=== PATIENT | female | born 1975 | race Caucasian/White ===

== ENCOUNTER 2018-01-12 22:06 | Emergency (ER) | payer BC, MEDICAID ==
[2018-01-12] MEDS ORDERED: Ondansetron 4 MG/2 ML SDV IVPUSH ONE (22:43)
[2018-01-12] MEDS ORDERED: Sodium Chloride 0.9% 1,000 ML IV ONE (22:43)
[2018-01-12] MEDS ORDERED: Sodium Chloride 0.9% 10 ML Syringe FLUSH PRN (22:43)
[2018-01-12] MEDS ORDERED: Ketorolac 30 MG/ML SDV IVPUSH ONE (23:11)
--- NOTE | 2018-01-12 23:19 | EDM.PDOC ---
ED HPI GENERAL MEDICAL PROBLEM - General Chief Complaint: Gastrointestinal Problem Stated Complaint: VOMITING Time Seen by Provider: 01/12/18 22:42 Source of Information: Reports: Patient History Limitations: Reports: No Limitations - History of Present Illness INITIAL COMMENTS - FREE TEXT/NARRATIVE: 42 y/o F with hx extensive abdominal surgeries for ?perforated bowel? (poor historian) and abdominal wound infection requiring wound vac several years ago, also possible bladder injury s/p repair, and prior narcotic abuse now clean x years, presents with pain. States pain is primarily in abdomen but she hurts so much all over that it's hard to say exactly where it's coming from. Pain is sharp, diffuse, worse with movement, no relieving factors. It started today. No provoking factors. Also had vomiting prior to arrival which seemed to make the pain worse. She states pain is currently severe. She didn't take anything for pain prior to coming to the ED. No fever. No cough/CP/SOB. She does have some dysuria. No hematuria. Lower Abdominal Pain Score (Numeric/FACES): 8 - Related Data Allergies Allergy/AdvReac Type Severity Reaction Status Date / Time Penicillins Allergy Rash Verified 01/12/18 22:18 Home Meds: Home Meds Dicyclomine [Bentyl] 20 mg PO QIDACANDBED PRN #20 tab 01/13/18 [Rx] Ondansetron [Zofran ODT] 4 mg PO Q6H PRN #12 tab.dis 01/13/18 [Rx] Past Medical History Other OB/BYN History: "Placenta went through her uterus and bladder" Musculoskeletal History: Reports: Fracture Psychiatric History: Reports: Depression Other Dermatologic History: Flesh eating staph infection - Past Surgical History GI Surgical History: Reports: Appendectomy Other GI Surgeries/Procedures: Part of colon removed Female Surgical History: Reports: Section Other Musculoskeletal Surgeries/Procedures:: Foot surgery Social & Family History - Family History Family Medical History: Noncontributory - Tobacco Use Smoking Status *Q: Current Every Day Smoker Years of Tobacco use: 25 Packs/Tins Daily: 1.5 - Recreational Drug Use Recreational Drug Use: No ED ROS GENERAL - Review of Systems Review Of Systems: See Below Constitutional: Denies: Fever HEENT: Reports: No Symptoms Respiratory: Reports: Cough Cardiovascular: Denies: Chest Pain GI/Abdominal: Reports: Abdominal Pain, Vomiting : Reports: Dysuria Musculoskeletal: Reports: No Symptoms Skin: Reports: No Symptoms Neurological: Reports: No Symptoms Psychiatric: Reports: No Symptoms Hematologic/Lymphatic: Reports: No Symptoms ED EXAM, GI/ABD - Physical Exam Exam: See Below Exam Limited By: No Limitations General Appearance: Alert, WD/WN, Anxious, Moderate Distress Eyes: Bilateral: Normal Appearance Ears: Normal External Exam Nose: Normal Inspection Throat/Mouth: Normal Inspection, Normal Oropharynx, Normal Voice, No Airway Compromise Head: Atraumatic, Normocephalic Neck: Normal Inspection Respiratory/Chest: No Respiratory Distress, Lungs Clear, Normal Breath Sounds Cardiovascular: Normal Peripheral Pulses, Regular Rate, Rhythm, No Murmur GI/Abdominal Exam: Soft, Other (diffuse TTP, no rebound/guarding ) Back Exam: Normal Inspection. No: CVA Tenderness (L), CVA Tenderness (R) Extremities: Normal Inspection Neurological: Alert, Oriented, Normal Cognition, No Motor/Sensory Deficits Psychiatric: Anxious, Tearful Skin Exam: Warm, Dry, Intact, Normal Color, No Rash Course - Vital Signs Last Recorded V/S: Last Vital Signs Temp 37.1 C 01/12/18 22:13 Pulse 97 01/12/18 22:13 Resp 24 H 01/12/18 22:13 BP 126/77 01/12/18 22:13 Pulse Ox 98 01/12/18 22:13 - Orders/Labs/Meds Orders: Active Orders 24 hr Category Date Time Status Peripheral IV Care [RC] . DIRECTED Care 01/12/18 22:43 Active Peripheral IV Care [RC] . DIRECTED Care 01/12/18 22:43 Active Abdomen Pelvis w Cont [CT] Stat Exams 01/12/18 23:23 Taken CULTURE URINE [RM] Stat Lab 01/13/18 01:14 Ordered UA W/MICROSCOPIC [URIN] Stat Lab 01/13/18 01:22 Ordered Peripheral IV Insertion Adult [OM.PC] Routine Oth 01/12/18 22:43 Ordered Labs: Laboratory Tests 01/12/18 01/12/18 01/12/18 Range/Units 22:58 22:58 22:58 WBC 9.63 (3.98-10.04) K/mm3 RBC 4.69 (3.98-5.22) M/mm3 Hgb 14.8 (11.2-15.7) gm/L Hct 44.6 (34.1-44.9) % MCV 95.1 H (79.4-94.8) fl MCH 31.6 (25.6-32.2) pg MCHC 33.2 (32.2-35.5) g/dl RDW Std Deviation 55.1 H (36.4-46.3) fL Plt Count 332 (182-369) K/mm3 MPV 10.1 (9.4-12.3) fl Neut % (Auto) 63.6 (34.0-71.1) % Lymph % (Auto) 27.4 (19.3-51.7) % Bland % (Auto) 6.4 (4.7-12.5) % Eos % (Auto) 1.6 (0.7-5.8) Baso % (Auto) 0.5 (0.1-1.2) % Neut # (Auto) 6.12 (1.56-6.13) K/mm3 Lymph # (Auto) 2.64 (1.18-3.74) K/mm3 Bland # (Auto) 0.62 H (0.24-0.36) K/mm3 Eos # (Auto) 0.15 (0.04-0.36) K/mm3 Baso # (Auto) 0.05 (0.01-0.08) K/mm3 Sodium 136 (136-145) mEq/L Potassium 4.5 (3.5-5.1) mEq/L Chloride 104 (98-107) mEq/L Carbon Dioxide 27 (21-32) mEq/L Anion Gap 9.5 (5-15) BUN 10 (7-18) mg/dL Creatinine 0.7 (0.55-1.02) mg/dL Est Cr Clr Drug Dosing 81.96 mL/min Estimated GFR (MDRD) > 60 (>60) mL/min BUN/Creatinine Ratio 14.3 (14-18) Glucose 103 (74-106) mg/dL Lactic Acid 0.8 (0.4-2.0) mmol/L Calcium 9.2 (8.5-10.1) mg/dL Magnesium 2.1 (1.8-2.4) mg/dl Total Bilirubin 0.3 (0.2-1.0) mg/dL AST 28 (15-37) U/L ALT 24 (14-59) U/L Alkaline Phosphatase 58 (46-116) U/L Total Protein 7.2 (6.4-8.2) g/dl Albumin 3.1 L (3.4-5.0) g/dl Globulin 4.1 gm/dL Albumin/Globulin Ratio 0.8 L (1-2) Lipase 402 H (73-393) U/L Urine Color (Yellow) Urine Appearance (Clear) Urine pH (5.0-8.0) Ur Specific [place] (1.005-1.030) Urine Protein (Negative) Urine Glucose (UA) (Negative) Urine Ketones (Negative) Urine Occult Blood (Negative) Urine Nitrite (Negative) Urine Bilirubin (Negative) Urine Urobilinogen (0.2-1.0) Ur Leukocyte Esterase (Negative) Urine RBC (0-5) /hpf Urine WBC (0-5) /hpf Ur Epithelial Cells (0-5) /hpf Urine Bacteria (FEW) /hpf Urine Mucus (FEW) /hpf 01/13/18 Range/Units 01:22 WBC (3.98-10.04) K/mm3 RBC (3.98-5.22) M/mm3 Hgb (11.2-15.7) gm/L Hct (34.1-44.9) % MCV (79.4-94.8) fl MCH (25.6-32.2) pg MCHC (32.2-35.5) g/dl RDW Std Deviation (36.4-46.3) fL Plt Count (182-369) K/mm3 MPV (9.4-12.3) fl Neut % (Auto) (34.0-71.1) % Lymph % (Auto) (19.3-51.7) % Bland % (Auto) (4.7-12.5) % Eos % (Auto) (0.7-5.8) Baso % (Auto) (0.1-1.2) % Neut # (Auto) (1.56-6.13) K/mm3 Lymph # (Auto) (1.18-3.74) K/mm3 Bland # (Auto) (0.24-0.36) K/mm3 Eos # (Auto) (0.04-0.36) K/mm3 Baso # (Auto) (0.01-0.08) K/mm3 Sodium (136-145) mEq/L Potassium (3.5-5.1) mEq/L Chloride (98-107) mEq/L Carbon Dioxide (21-32) mEq/L Anion Gap (5-15) BUN (7-18) mg/dL Creatinine (0.55-1.02) mg/dL Est Cr Clr Drug Dosing mL/min Estimated GFR (MDRD) (>60) mL/min BUN/Creatinine Ratio (14-18) Glucose (74-106) mg/dL Lactic Acid (0.4-2.0) mmol/L Calcium (8.5-10.1) mg/dL Magnesium (1.8-2.4) mg/dl Total Bilirubin (0.2-1.0) mg/dL AST (15-37) U/L ALT (14-59) U/L Alkaline Phosphatase (46-116) U/L Total Protein (6.4-8.2) g/dl Albumin (3.4-5.0) g/dl Globulin gm/dL Albumin/Globulin Ratio (1-2) Lipase (73-393) U/L Urine Color Light yellow (Yellow) Urine Appearance Slt cloudy H (Clear) Urine pH 7.0 (5.0-8.0) Ur Specific [place] 1.015 (1.005-1.030) Urine Protein Negative (Negative) Urine Glucose (UA) Negative (Negative) Urine Ketones Negative (Negative) Urine Occult Blood Negative (Negative) Urine Nitrite Negative (Negative) Urine Bilirubin Negative (Negative) Urine Urobilinogen 0.2 (0.2-1.0) Ur Leukocyte Esterase Negative (Negative) Urine RBC Not seen (0-5) /hpf Urine WBC 0-5 (0-5) /hpf Ur Epithelial Cells 0-5 (0-5) /hpf Urine Bacteria Rare (FEW) /hpf Urine Mucus Not seen (FEW) /hpf Meds: Medications Discontinued Medications Generic Name Dose Route Start Last Admin Trade Name Freq PRN Reason Stop Dose Admin Diatrizoate Meglum/Diatrizoate Sod 120 ml 01/13/18 01:02 Gastrografin 37% PO 01/13/18 01:03 ONETIME ONE Diatrizoate Meglum/Diatrizoate Sod 90 ml 01/13/18 01:45 01/13/18 01:46 Gastrografin 37% PO 01/13/18 01:46 Not Given ONETIME ONE Dicyclomine HCl 40 mg 01/13/18 02:35 01/13/18 02:50 Bentyl PO 01/13/18 02:36 40 mg ONETIME ONE Administration Fentanyl 50 mcg 01/13/18 01:12 01/13/18 01:47 Sublimaze IVPUSH 01/13/18 01:13 50 mcg ONETIME ONE Administration Sodium Chloride 1,000 mls @ 1,000 mls/hr 01/12/18 22:43 01/12/18 23:04 Normal Saline IV 01/12/18 23:42 1,000 mls/hr ONETIME ONE Administration Sodium Chloride 1,000 mls @ 1,000 mls/hr 01/13/18 00:17 01/13/18 00:23 Normal Saline IV 01/13/18 01:16 1,000 mls/hr ONETIME ONE Administration Iopamidol 125 ml 01/13/18 01:02 01/13/18 01:46 Isovue-300 (61%) IVPUSH 01/13/18 01:03 125 ml ONETIME ONE Administration Iopamidol 125 ml 01/13/18 01:45 Isovue-300 (61%) IVPUSH 01/13/18 01:46 ONETIME ONE Ketorolac Tromethamine 30 mg 01/12/18 23:11 01/12/18 23:29 Toradol IVPUSH 01/12/18 23:12 30 mg ONETIME ONE Administration Lorazepam 1 mg 01/12/18 23:22 01/12/18 23:30 Ativan IVPUSH 01/12/18 23:23 1 mg ONETIME ONE Administration Morphine Sulfate 4 mg 01/13/18 00:01 01/13/18 00:23 Morphine IVPUSH 4 mg Q2H PRN Administration Pain Ondansetron HCl 4 mg 01/12/18 22:43 01/12/18 23:04 Zofran IVPUSH 01/12/18 22:44 4 mg ONETIME ONE Administration Oxycodone HCl 5 mg 01/13/18 02:35 01/13/18 03:52 Oxycodone PO 01/13/18 02:36 Not Given ONETIME ONE Oxycodone/Acetaminophen 1 tab 01/13/18 02:45 01/13/18 02:49 Percocet 325-5 Mg PO 01/13/18 02:46 1 tab ONETIME ONE Administration Pantoprazole Sodium 40 mg 01/13/18 01:31 01/13/18 01:42 Protonix Iv IVPUSH 01/13/18 01:32 40 mg ONETIME ONE Administration Phenazopyridine HCl 95 mg 01/13/18 02:06 01/13/18 02:50 Urinary Pain Relief PO 95 mg TIDPC STEPHANIE Administration Sodium Chloride 10 ml 01/12/18 22:43 01/12/18 23:05 Saline Flush FLUSH 10 ml ASDIRECTED PRN Administration Keep Vein Open - Re-Assessments/Exams Free Text/Narrative Re-Assessment/Exam: 01/13/18 01:34 Labs significant for normal WBC, no left shift, normal HCT, normal electrolytes , normal LFT's, lipase 402. UA pending. Given degree of pain and complicated past surgical history, will proceed with CT a/p. 01/13/18 02:36 Patient was sleeping comfortably when I went to check on her. When awake, she continued to complain of diffuse abdominal pain. No clear explanation for pain. UA negative. CT a/p shows no acute findings. Her labs are benign. Will give dose of bentyl, plan for dc home with PCP f/u tomorrow or [facility]. Departure - Departure Time of Disposition: 02:37 Disposition: Home, Self-Care 01 Clinical Impression: Abdominal pain Qualifiers: Abdominal location: generalized Qualified Code(s): R10.84 - Generalized abdominal pain - Discharge Information Prescriptions: Dicyclomine [Bentyl] 20 mg PO QIDACANDBED PRN #20 tab PRN Reason: Abdominal Pain Ondansetron [Zofran ODT] 4 mg PO Q6H PRN #12 tab.dis PRN Reason: Nausea Instructions: Abdominal Pain, Adult, [id number] Referrals: Denice Ferrari PA-C [Primary Care Provider] - Forms: ED Department Discharge Additional Instructions: 1. Continue your current home medications 2. Take bentyl (dicyclomine) as needed for abdominal cramping. Take ondansetron (zofran) as prescribed for nausea. 3. Follow up with your primary care provider as soon as possible, ideally tomorrow if possible. 4. Clear liquid diet until you're feeling better. Once your pain has subsided and you have an appetite, OK to start advancing your diet. 5. Return to the ED as needed for a recheck if you have severe pain, multiple episodes of vomiting without keeping liquids down and concern for dehydration, difficulty breathing, or other concerning symptoms. - My Orders Last 24 Hours: My Active Orders 01/12/18 22:43 Peripheral IV Care [RC] . DIRECTED Peripheral IV Care [RC] . DIRECTED Peripheral IV Insertion Adult [OM.PC] Routine 01/12/18 23:23 Abdomen Pelvis w Cont [CT] Stat 01/13/18 01:14 CULTURE URINE [RM] Stat 01/13/18 01:22 UA W/MICROSCOPIC [URIN] Stat - Assessment/Plan Last 24 Hours: My Active Orders 01/12/18 22:43 Peripheral IV Care [RC] . DIRECTED Peripheral IV Care [RC] . DIRECTED Peripheral IV Insertion Adult [OM.PC] Routine 01/12/18 23:23 Abdomen Pelvis w Cont [CT] Stat 01/13/18 01:14 CULTURE URINE [RM] Stat 01/13/18 01:22 UA W/MICROSCOPIC [URIN] Stat
[2018-01-12] MEDS ORDERED: LORazepam 2 MG/ML SDV IVPUSH ONE (23:22)
[2018-01-13] MEDS ORDERED: Morphine 4 MG/ML Syringe IVPUSH PRN (00:01)
[2018-01-13] MEDS ORDERED: Sodium Chloride 0.9% 1,000 ML IV ONE (00:17)
[2018-01-13] MEDS ORDERED: Iopamidol 612 MG/ML 150 ML Bottle IVPUSH ONE ×2 (01:02→01:45)
[2018-01-13] MEDS ORDERED: Diatrizoate Meglumine/Diatrizoate Sodium 37% 120 ML Bottle PO ONE ×2 (01:02→01:45)
[2018-01-13] MEDS ORDERED: fentaNYL 100 MCG/2 ML SDV IVPUSH ONE (01:12)
[2018-01-13] MEDS ORDERED: Pantoprazole 40 MG Vial IVPUSH ONE (01:31)
[2018-01-13] MEDS ORDERED: Phenazopyridine 95 MG Tab PO SCH (02:06)
[2018-01-13] MEDS ORDERED: Dicyclomine 10 MG Cap PO ONE (02:35)
[2018-01-13] MEDS ORDERED: oxyCODONE 5 MG Tab PO ONE (02:35)
[2018-01-13] MEDS ORDERED: Acetaminophen/oxyCODONE 325-5 MG Tab PO ONE (02:45)
--- NOTE | 2018-01-13 08:19 | CT ---
CT abdomen and pelvis Technique: Multiple axial sections were obtained from above the dome of the diaphragm inferiorly through the pubic symphysis. Intravenous contrast was utilized. No oral contrast has been given. Delayed images were obtained through the bladder. Comparison: Prior abdominal and pelvic CT exam of 01/11/13. Findings: Incidental bilateral breast prosthesis noted. Bibasilar atelectasis is seen. Liver shows no focal parenchymal abnormality. Spleen appears within normal limits. Adrenal glands show no nodule. Gallbladder contains no calcified gallstones. Kidneys show symmetric contrast enhancement without hydronephrosis or mass. Pancreas is within normal limits. Aorta shows atherosclerotic change which continues into the iliac vessels. No aneurysm is seen. No retroperitoneal adenopathy is noted. No mesenteric abnormalities are seen. Appendix not visualized. No pelvic mass or adenopathy is seen. Delayed images show contrast within the distal ureters and within the bladder. No free fluid or inflammatory change is seen. Bone window settings were reviewed which show a lucent lesion within the right iliac bone measuring about 3.1 cm in size which appears stable from previous CT exam and is therefore benign. Impression: 1. Incidental findings. Nothing acute is appreciated on CT study of the abdomen and pelvis. Diagnostic code #2 I agree with preliminary report issued by [facility] ([facility] preliminary report dictated on 01/13/18, 3:27 AM Central Time)
== END 2018-01-13 02:55 | disposition home or self-care (01) ==
LOC: JD.ED 22:06
DX: R10.84 Generalized abdominal pain (principal); R10.30 Lower abdominal pain, unspecified; F17.210 Nicotine dependence, cigarettes, uncomplicated; F32.9 Major depressive disorder, single episode, unspecified; Z88.0 Allergy status to penicillin; Z79.899 Other long term (current) drug therapy; Z90.49 Acquired absence of other specified parts of digestive tract
CPT/HCPCS: 36415; 74177; 80053; 81001; 83605; 83690; 83735; 85025; 87086; 96361; 96374; 96375; 99284; A9270; C9113; J1885; J2060; J2270; J2405; J3010; J7040; J7050; Q9963; Q9967

== ENCOUNTER 2018-09-23 00:39 | Emergency (ER) | payer MEDICAID ==
[2018-09-23] MEDS ORDERED: Ketorolac 30 MG/ML SDV IM ONE (01:14)
[2018-09-23] MEDS ORDERED: LORazepam 1 MG Tab PO ONE (01:14)
--- NOTE | 2018-09-23 01:57 | EDM.PDOC ---
ED HPI GENERAL MEDICAL PROBLEM - General Chief Complaint: Back Pain or Injury Stated Complaint: FALL/BACK PAIN VOMITING Time Seen by Provider: 09/23/18 01:05 Source of Information: Reports: Patient, RN Notes Reviewed - History of Present Illness INITIAL COMMENTS - FREE TEXT/NARRATIVE: 43-year-old female slipped on the ice last evening about 5 hours ago coming down on her tailbone and low back. She is complaining of very severe low back discomfort as well as tailbone discomfort worse with motion. States she did hit her head but there is no LOC. She does not have significant headache. No major neck discomfort, no chest pain or difficulty breathing. 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: "Placenta went through her uterus and bladder" Musculoskeletal History: Reports: Fracture Psychiatric History: Reports: Anxiety, Depression Other Dermatologic History: Flesh eating staph infection - Past Surgical History GI Surgical History: Reports: Appendectomy Other GI Surgeries/Procedures: Part of colon removed Female Surgical History: Reports: Section Other Musculoskeletal Surgeries/Procedures:: Foot surgery Social & Family History - Family History Family Medical History: Noncontributory - Tobacco Use Smoking Status *Q: Current Every Day Smoker Years of Tobacco use: 25 Packs/Tins Daily: 1 - Caffeine Use Caffeine Use: Reports: Soda - Recreational Drug Use Recreational Drug Use: Yes Drug Use in Last 12 Months: No Recreational Drug Type: Reports: Ativan, Dilaudid, Oxycodone, Other (see below) Other Recreational Drug Type: pt states she used to "pop pills" . ED ROS GENERAL - Review of Systems Review Of Systems: See Below Constitutional: Reports: No Symptoms HEENT: Denies: Ear Discharge Respiratory: Denies: Shortness of Breath Cardiovascular: Denies: Chest Pain GI/Abdominal: Denies: Abdominal Pain Musculoskeletal: Reports: Back Pain. Denies: Neck Pain, Shoulder Pain, Leg Pain (Low back), Joint Pain (No hip or lower extremity pain) Skin: Denies: Bruising Neurological: Reports: Dizziness (Mild), Headache (Minimal) ED EXAM,LOWER BACK PAIN/INJURY - Physical Exam Exam: See Below General Appearance: Alert, Anxious (Hyperventilating on arrival to ED), Moderate Distress Eye Exam: Bilateral Eye: PERRL Ears: Normal External Exam Nose: Normal Inspection Throat/Mouth: Normal Inspection Head: Atraumatic Neck: Supple, Non-Tender Respiratory/Chest: No Respiratory Distress, Lungs Clear, Normal Breath Sounds Cardiovascular: Regular Rate, Rhythm Back Exam: Paraspinal Tenderness, Vertebral Tenderness, Other (Low mid back no bruising or abrasion visible, no swelling) Extremities: Normal Inspection Neurological: Alert, No Motor/Sensory Deficits Skin Exam: Warm, Dry, Normal Color Course - Vital Signs Last Recorded V/S: Last Vital Signs Temp 97.8 F 09/23/18 00:57 Pulse 108 H 09/23/18 00:57 Resp 18 09/23/18 00:57 BP 125/91 H 09/23/18 00:57 Pulse Ox 98 09/23/18 00:57 - Orders/Labs/Meds Orders: Active Orders 24 hr Category Date Time Status Lumbar Spine 2 or 3V [CR] Stat Exams 09/23/18 01:27 Taken Sacrum Coccyx Min 2V [CR] Stat Exams 09/23/18 01:27 Taken Meds: Medications Discontinued Medications Generic Name Dose Route Start Last Admin Trade Name Germanq PRN Reason Stop Dose Admin Acetaminophen 650 mg 09/23/18 02:13 09/23/18 02:27 Tylenol PO 09/23/18 02:14 650 mg NOW ONE Administration Hydrocodone Bitart/Acetaminophen 1 tab 09/23/18 02:12 09/23/18 02:26 [place] 325-5 Mg PO 09/23/18 02:13 1 tab ONETIME ONE Administration Ketorolac Tromethamine 30 mg 09/23/18 01:14 09/23/18 01:22 Toradol IM 09/23/18 01:15 30 mg ONETIME ONE Administration Lorazepam 1 mg 09/23/18 01:14 09/23/18 01:23 Ativan PO 09/23/18 01:15 1 mg ONETIME ONE Administration - Re-Assessments/Exams Free Text/Narrative Re-Assessment/Exam: 09/23/18 02:46 X-rays show no visible fracture Departure - Departure Time of Disposition: 02:20 Disposition: Home, Self-Care 01 Condition: Fair Clinical Impression: Fall Qualifiers: Encounter type: initial encounter Qualified Code(s): W19.XXXA - Unspecified fall, initial encounter Contusion of coccyx Qualifiers: Encounter type: initial encounter Qualified Code(s): S30.0XXA - Contusion of lower back and pelvis, initial encounter Contusion, back Qualifiers: Encounter type: initial encounter Laterality: unspecified laterality Qualified Code(s): S20.229A - Contusion of unspecified back wall of thorax, initial encounter - Discharge Information Instructions: Contusion Referrals: Denice Ferrari PA-C [Primary Care Provider] - Forms: ED Department Discharge Additional Instructions: Alternate ice and heat as needed, you have been given Ativan orally, Toradol IM , Tylenol 650 mg, one half tablet hydrocodone while here in the ED. You may take the other half tablet hydrocodone in about 6 hours along with 500 mg Tylenol if needed at that time. Then continue to alternate Tylenol and ibuprofen or Aleve until discomfort resolving, follow-up clinic if not much better within 3-5 days as expected. - My Orders Last 24 Hours: My Active Orders 09/23/18 01:27 Lumbar Spine 2 or 3V [CR] Stat Sacrum Coccyx Min 2V [CR] Stat - Assessment/Plan Last 24 Hours: My Active Orders 09/23/18 01:27 Lumbar Spine 2 or 3V [CR] Stat Sacrum Coccyx Min 2V [CR] Stat
[2018-09-23] MEDS ORDERED: Acetaminophen/HYDROcodone 325-5 MG Tab PO ONE (02:12)
[2018-09-23] MEDS ORDERED: Acetaminophen 325 MG Tab PO ONE (02:13)
--- NOTE | 2018-09-23 06:40 | CR ---
Lumbar spine: AP, lateral and cone-down lateral view centered to the lumbosacral junction were obtained. Comparison: No prior lumbar spine imaging. Mild disc space narrowing is noted at L5-S1. Other disc spaces are maintained. Mild scattered endplate osteophytes are seen. Minimal scoliosis is noted. Pedicles as well as visualized transverse and spinous processes are intact. No subluxation or fracture seen. Mild atherosclerotic calcification is noted within the aorta. Impression: 1. Mild degenerative change and mild scoliosis. 2. Nothing acute is appreciated on three-view lumbar spine exam. Diagnostic code #2
--- NOTE | 2018-09-23 06:40 | CR ---
Sacrum and coccyx: Three views of the sacrum and coccyx were obtained. Mild disc space narrowing is again seen at L5-S1. Sacroiliac joints are within normal limits. Surgical anastomotic sutures are seen within the right lower abdomen. No fracture or other abnormality is seen. Impression: 1. Mild disc space narrowing at L5-S1 . Previous lower abdominal surgery. 2. Three-view sacrum and coccyx study is otherwise unremarkable. Diagnostic code #2
== END 2018-09-23 02:30 | disposition home or self-care (01) ==
LOC: JD.ED 00:39
DX: S30.0XXA Contusion of lower back and pelvis, initial encounter (principal); F17.210 Nicotine dependence, cigarettes, uncomplicated; Z88.0 Allergy status to penicillin; Z90.49 Acquired absence of other specified parts of digestive tract; W00.0XXA Fall on same level due to ice and snow, initial encounter
CPT/HCPCS: 72100; 72220; 96372; 99283; A9270; J1885

== ENCOUNTER 2019-12-29 14:29 | Emergency (ER) | payer MEDICAID ==
--- NOTE | 2019-12-29 14:59 | EDM.PDOC ---
ED HPI GENERAL MEDICAL PROBLEM - General Chief Complaint: Upper Extremity Injury/Pain Stated Complaint: RIGHT ARM INJURY Time Seen by Provider: 12/29/19 14:43 Source of Information: Reports: Patient History Limitations: Reports: No Limitations - History of Present Illness INITIAL COMMENTS - FREE TEXT/NARRATIVE: Patient is a 44-year-old female who presents with complaints of pain to her right arm after falling. She states that she tripped and landed on the right arm. Pain is localized to the medial aspect of her elbow, however if she closes her hand tightly the pain will shoot down to her hand. She has had no previous injury to this extremity. Left Arm Pain Score (Numeric/FACES): 9 - Related Data Allergies Allergy/AdvReac Type Severity Reaction Status Date / Time Penicillins Allergy Rash Verified 12/29/19 14:53 Home Meds: Home Meds Acetaminophen/HYDROcodone [Cabot 325-5 MG] 1 tab PO Q4H PRN #10 tablet 12/29/19 [Rx] Past Medical History Other [employer] History: "Placenta went through her uterus and bladder" Musculoskeletal History: Reports: Fracture Psychiatric History: Reports: Anxiety, Depression Other Dermatologic History: Flesh eating staph infection - Past Surgical History GI Surgical History: Reports: Appendectomy Other GI Surgeries/Procedures: Part of colon removed Female Surgical History: Reports: Section, Other (See Below) Other Female Surgeries/Procedures: part of bladder removed Other Musculoskeletal Surgeries/Procedures:: Foot surgery Social & Family History - Family History Family Medical History: Noncontributory - Tobacco Use Smoking Status *Q: Current Every Day Smoker Years of Tobacco use: 20 Packs/Tins Daily: 1 - Caffeine Use Caffeine Use: Reports: Coffee - Recreational Drug Use Recreational Drug Use: No Review of Systems - Review of Systems Review Of Systems: Comprehensive ROS is negative, except as noted in HPI. ED EXAM, GENERAL - Physical Exam Exam: See Below Exam Limited By: No Limitations General Appearance: Alert, WD/WN, No Apparent Distress Respiratory/Chest: No Respiratory Distress, Lungs Clear, Normal Breath Sounds, No Accessory Muscle Use, Chest Non-Tender Cardiovascular: Normal Peripheral Pulses, Regular Rate, Rhythm, No Edema, No Gallop, No JVD, No Murmur, No Rub Extremities: Other (Scattered bruises in various stages of healing to the right arm. No obvious deformity or edema. Tenderness to palpation through the medial aspect of the right elbow and proximal forearm.) Neurological: Alert, Oriented, CN II-XII Intact, Normal Cognition, Normal Gait, Normal Reflexes, No Motor/Sensory Deficits Psychiatric: Normal Affect, Normal Mood Skin Exam: Warm, Dry, Intact, Normal Color, No Rash Course - Vital Signs Last Recorded V/S: Last Vital Signs Temp 98.5 F 12/29/19 14:42 Pulse 101 H 12/29/19 14:42 Resp BP Pulse Ox - Orders/Labs/Meds Orders: Active Orders 24 hr Category Date Time Status DME for Discharge [COMM] Routine Oth 12/29/19 16:56 Ordered Meds: Medications Discontinued Medications Generic Name Dose Route Start Last Admin Trade Name Freq PRN Reason Stop Dose Admin Hydrocodone Bitart/Acetaminophen 1 tab 12/29/19 16:08 12/29/19 16:30 Cabot 325-5 Mg PO 12/29/19 16:09 1 tab ONETIME ONE Administration Hydromorphone HCl 1 mg 12/29/19 15:01 12/29/19 15:04 Dilaudid IM 12/29/19 15:02 1 mg ONETIME ONE Administration - Re-Assessments/Exams Free Text/Narrative Re-Assessment/Exam: 12/29/19 16:09 X-ray of the elbow and forearm were negative for any acute abnormalities. The extremity was wrapped in Watson wrap and a sling was provided. Recommend that she ice over the area intermittently for the next few days. Use the sling as needed for comfort. I will send her home with a few Cabot for pain. Discussed that if she continues to have pain after a week or so, she should contact Dr. Dinh to follow-up. Discharge instructions as documented. Departure - Departure Time of Disposition: 16:10 Disposition: Home, Self-Care 01 Condition: Good Clinical Impression: Contusion, elbow, with forearm Qualifiers: Encounter type: initial encounter Laterality: right Qualified Code(s): S50.11XA - Contusion of right forearm, initial encounter - Discharge Information *PRESCRIPTION DRUG MONITORING PROGRAM REVIEWED*: Yes *COPY OF PRESCRIPTION DRUG MONITORING REPORT IN PATIENT GABBY: No Prescriptions: Acetaminophen/HYDROcodone [Cabot 325-5 MG] 1 tab PO Q4H PRN #10 tablet PRN Reason: Pain Instructions: Contusion, [id number] Referrals: Denice Ferrari PA-C [Primary Care Provider] - Valente Dinh MD [Physician] - Forms: ED Department Discharge Additional Instructions: You were seen in the emergency department today for pain to your right elbow and forearm after falling. X-rays were completed and showed no fractures. It is likely that you are suffering from a contusion to this area. An Watson wrap and sling have been applied for comfort. You may wear these as needed. Recommend that you ice over the area of pain intermittently for the next few days. Use [id number] ibuprofen or Tylenol as needed for pain. For pain not relieved by these measures, a prescription for Cabot has been sent to [facility] [employer]. Do not drive or operate heavy machinery for 12 hours after taking this medication as it can be sedating. If you are still experiencing significant pain after 1 week, recommend that you call to schedule a follow-up appointment with Dr. Dinh. His number is listed below. Return to the ER as needed. Sepsis Event Note - Evaluation Sepsis Screening Result: No Definite Risk - Focused Exam Vital Signs: Vital Signs Temp Pulse 12/29/19 14:42 98.5 F 101 H Date Exam was Performed: 12/29/19 Time Exam was Performed: 21:53 - My Orders Last 24 Hours: My Active Orders 12/29/19 16:56 DME for Discharge [COMM] Routine - Assessment/Plan Last 24 Hours: My Active Orders 12/29/19 16:56 DME for Discharge [COMM] Routine
[2019-12-29] MEDS ORDERED: HYDROmorphone 1 MG/ML Syringe IM ONE (15:01)
--- NOTE | 2019-12-29 15:40 | CR ---
Right forearm: 2 views of the right forearm were obtained. Comparison: No prior forearm study. No fracture or other bony abnormality is appreciated. Impression: 1. No abnormality is appreciated on 2 view right forearm study. Diagnostic code #1 This report was dictated in MDT
--- NOTE | 2019-12-29 15:40 | CR ---
Right elbow: 4 views of the right elbow were obtained. Comparison: No prior elbow study is available. No joint effusion is seen. Joint spaces are preserved. No acute fracture, dislocation or other bony abnormality is appreciated. Impression: 1. No abnormality is appreciated on right elbow study. Diagnostic code #1 This report was dictated in MDT
[2019-12-29] MEDS ORDERED: Acetaminophen/HYDROcodone 325-5 MG Tab PO ONE (16:08)
== END 2019-12-29 16:36 | disposition home or self-care (01) ==
LOC: JD.ED 14:29
DX: S50.11XA Contusion of right forearm, initial encounter (principal); F17.210 Nicotine dependence, cigarettes, uncomplicated; Z88.0 Allergy status to penicillin; W01.0XXA Fall on same level from slipping, tripping and stumbling without subsequent striking against object, initial encounter
CPT/HCPCS: 73080; 73090; 96372; 99283; A9270; J1170

== ENCOUNTER 2021-06-09 12:13 | Emergency (ER) | payer MEDICAID ==
[2021-06-09] MEDS ORDERED: Methocarbamol 500 MG Tab PO ONE (12:57)
[2021-06-09] MEDS ORDERED: Ketorolac 30 MG/ML SDV IM ONE (12:57)
[2021-06-09] MEDS ORDERED: Diazepam 2 MG Tab PO ONE (13:53)
--- NOTE | 2021-06-09 13:58 | EDM.PDOC ---
ED HPI GENERAL MEDICAL PROBLEM - General Chief Complaint: Back Pain or Injury Stated Complaint: BACK PAIN Time Seen by Provider: 06/09/21 13:00 Source of Information: Reports: Patient - History of Present Illness INITIAL COMMENTS - FREE TEXT/NARRATIVE: Patient 46-year-old female presenting to the emergency room with chief complaint of low back pain. Patient reports having history of intermittent low back pain for years. Patient states pain is localized on the right side without radiation. Pain is worse with movement. Patient reports pain for 2 days but has not improved with any sort of ibuprofen or Tylenol at home. Patient denies any fevers, chills, saddle paresthesias, urinary incontinence. Patient states in the past when she has had this type of pain the only thing has helped is hydrocodone. Denies any specific injury. 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 Back Pain Score (Numeric/FACES): 10 - Related Data Allergies Allergy/AdvReac Type Severity Reaction Status Date / Time Penicillins Allergy Rash Verified 12/29/19 14:53 Home Meds: Home Meds Celecoxib [CeleBREX] 100 mg PO BID #20 cap 06/09/21 [Rx] Lidocaine 4% [LMX 4 Cream with Tegaderm] 1 each .XX DAILY #5 kit 06/09/21 [Rx] Sertraline [Zoloft] 50 mg PO DAILY 06/09/21 [History] busPIRone [Buspar] 10 mg PO BEDTIME 06/09/21 [History] traZODone 100 mg PO BEDTIME 06/09/21 [History] Past Medical History Other [employer] AGENT History: "Placenta went through her uterus and bladder" Musculoskeletal History: Reports: Fracture Psychiatric History: Reports: Anxiety, Depression Other Dermatologic History: Flesh eating staph infection - Infectious Disease History Infectious Disease History: Reports: None - Past Surgical History GI Surgical History: Reports: Appendectomy Other GI Surgeries/Procedures: Part of colon removed Female Surgical History: Reports: Section, Other (See Below) Other Female Surgeries/Procedures: part of bladder removed Other Musculoskeletal Surgeries/Procedures:: Foot surgery Social & Family History - Family History Family Medical History: No Pertinent Family History - Tobacco Use Tobacco Use Status *Q: Current Every Day Tobacco User Years of Tobacco use: 30 Packs/Tins Daily: 1 - Caffeine Use Caffeine Use: Reports: Soda - Recreational Drug Use Recreational Drug Use: No ED ROS GENERAL - Review of Systems Review Of Systems: See Below Free Text/Narrative/Comment: In addition to that documented in the HPI above, the additional ROS was obtained: Constitutional: Denies fevers or chills Eyes: Denies vision changes ENMT: Denies sore throat CV: Denies chest pain Resp: Denies SOB GI: Denies vomiting or diarrhea : Denies painful urination MSK: Denies recent trauma Skin: Denies new rashes Neuro: Denies new numbness or tingling or weakness Endocrine: Denies unexpected weight loss Heme: Denies bleeding disorders ED EXAM,LOWER BACK PAIN/INJURY - Physical Exam Exam: See Below Text/Narrative:: I have reviewed the triage vital signs Const: Well nourished, well developed, appears stated age Eyes: Pupils Equal and reactive to light bilaterally, no conjunctival injection HENT: No signs of trauma or swelling, Neck supple without meningismus CV: Regular Rate Rhythm, Warm, well-perfused extremities RESP: Unlabored respiratory effort GI: soft, non-tender, non-distended, no masses MSK: No midline spinal tenderness. No gross deformities appreciated Skin: Warm, dry. 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 Sensation and motor function of extremities grossly intact. Psych: Appropriate mood and affect. Course - Vital Signs Last Recorded V/S: Last Vital Signs Temp 36.1 C 06/09/21 12:41 Pulse 65 06/09/21 12:41 Resp 20 06/09/21 12:41 BP 146/87 H 06/09/21 12:41 Pulse Ox 99 06/09/21 12:41 - Orders/Labs/Meds Orders: Active Orders 24 hr Category Date Time Status Lidocaine 4% [LMX 4 Cream with Tegaderm] Med 06/09/21 14:04 Once 1 each TOP ASDIRECTED ONE Meds: Medications Discontinued Medications Generic Name Dose Route Start Last Admin Trade Name Tee PRN Reason Stop Dose Admin Diazepam 2 mg 06/09/21 13:53 Diazepam 2 Mg Tab PO 06/09/21 13:54 ONETIME ONE Ketorolac Tromethamine 30 mg 06/09/21 12:57 06/09/21 13:04 Ketorolac 30 Mg/Ml Sdv IM 06/09/21 12:58 30 mg ONETIME ONE Administration Methocarbamol 1,000 mg 06/09/21 12:57 06/09/21 13:14 Methocarbamol 500 Mg Tab PO 06/09/21 12:58 1,000 mg ONETIME ONE Administration Departure - Departure Time of Disposition: 13:57 Disposition: Home, Self-Care 01 Clinical Impression: Low back pain - Discharge Information Prescriptions: Celecoxib [CeleBREX] 100 mg PO BID #20 cap Lidocaine 4% [LMX 4 Cream with Tegaderm] 1 each .XX DAILY #5 kit Instructions: Acute Back Pain, Adult Referrals: Denice Ferrari PA-C [Primary Care Provider] - Forms: ED Department Discharge Sepsis Event Note (ED) - Focused Exam Vital Signs: Vital Signs Temp Pulse Resp BP Pulse Ox 06/09/21 12:41 36.1 C 65 20 146/87 H 99 - My Orders Last 24 Hours: My Active Orders 06/09/21 14:04 Lidocaine 4% [LMX 4 Cream with Tegaderm] 1 each TOP ASDIRECTED ONE - Assessment/Plan Last 24 Hours: My Active Orders 06/09/21 14:04 Lidocaine 4% [LMX 4 Cream with Tegaderm] 1 each TOP ASDIRECTED ONE Assessment:: Patient is 46-year-old female with a chief complaint of low back pain. Patient had clinical presentation consistent with musculoskeletal low back pain. No evidence of spinal epidural abscess, cauda equina or kidney stone based on evaluation. Patient received Toradol and Robaxin in the emergency room. Patient requested narcotic medication multiple times but was informed that this would not be given for this type of musculoskeletal pain. Instructed to follow- up with primary care and gave her appropriate return precautions. Prescriptions for left for lidocaine patch and Celebrex sent to patient's pharmacy.
[2021-06-09] MEDS ORDERED: Lidocaine 4% Crm 5 Gm with Transparent Dressing Kit TOP ONE (14:04)
== END 2021-06-09 14:16 | disposition home or self-care (01) ==
LOC: JD.ED 12:13
DX: M54.50 Low back pain, unspecified (principal); Z88.0 Allergy status to penicillin; Z72.0 Tobacco use
CPT/HCPCS: 96372; 99283; A9270; J1885

== ENCOUNTER 2021-10-31 17:59 | Emergency (ER) | payer MEDICAID ==
[2021-10-31] MEDS ORDERED: Sodium Chloride 0.9% 1,000 ML IV STA (18:38)
[2021-10-31] MEDS ORDERED: Ondansetron 4 MG/2 ML SDV IVPUSH ONE (18:39)
[2021-10-31] MEDS ORDERED: LORazepam 2 MG/ML SDV IVPUSH ONE (18:40)
[2021-10-31] MEDS: Sodium Chloride 0.9% 10 ML Syringe FLUSH PRN ×2 (19:14→20:04)
[2021-10-31] MEDS ORDERED: Iopamidol 612 MG/ML 100 ML Bottle IVPUSH ONE (19:39)
[2021-10-31] MEDS ORDERED: Sodium Chloride 0.9% 10 ML Syringe FLUSH ONE (19:39)
[2021-10-31] MEDS ORDERED: Sodium Chloride 0.9% 100 ML IV SCH (19:45)
[2021-10-31 19:48] LABS: CORONAVIRUS COVID-19 NAA NEGATIVE (NEGATIVE)
[2021-10-31] MEDS ORDERED: HYDROmorphone 0.5 MG/0.5 ML Syringe IVPUSH ONE (20:40)
[2021-10-31] MEDS ORDERED: Dicyclomine 10 MG Cap PO ONE (20:41)
== END 2021-10-31 22:05 | disposition home or self-care (01) ==
LOC: JD.ED 17:59
DX: K52.9 Noninfective gastroenteritis and colitis, unspecified (principal); Z88.0 Allergy status to penicillin; Z72.0 Tobacco use; Z20.822 Contact with and (suspected) exposure to COVID-19
CPT/HCPCS: 0240U; 36415; 74177; 80053; 81001; 83630; 83690; 83735; 85025; 86140; 87045; 87046; 87493; 87899; 96374; 96375; 99284; A9270; J1170; J2060; J2405; J7030; Q9967; 99285

== ENCOUNTER 2022-02-19 13:18 | Emergency (ER) | payer MEDICAID ==
[2022-02-19] MEDS ORDERED: Ketorolac 15 MG/ML SDV IM ONE (15:31)
[2022-02-19] MEDS ORDERED: diphenhydrAMINE 50 MG/ML SDV IM ONE (15:31)
== END 2022-02-19 15:50 | disposition swing bed (61) ==
LOC: JD.ED 13:18
DX: T78.40XA Allergy, unspecified, initial encounter (principal); F17.210 Nicotine dependence, cigarettes, uncomplicated; Z88.0 Allergy status to penicillin
CPT/HCPCS: 96372; 99283; J1200; J1885

== ENCOUNTER 2022-04-08 11:57 | Emergency (ER) | payer MEDICAID ==
[2022-04-08] MEDS ORDERED: Sodium Chloride 0.9% 10 ML Syringe FLUSH PRN (12:35)
[2022-04-08] MEDS ORDERED: Sodium Chloride 0.9% 1,000 ML IV STA (12:35)
[2022-04-08] MEDS ORDERED: Ketorolac 30 MG/ML SDV IVPUSH ONE (12:36)
== END 2022-04-08 14:35 | disposition home or self-care (01) ==
LOC: JD.ED 11:57
DX: U07.1 COVID-19 (principal); K04.7 Periapical abscess without sinus; F17.210 Nicotine dependence, cigarettes, uncomplicated; Z88.0 Allergy status to penicillin; Z86.16 Personal history of COVID-19
CPT/HCPCS: 36415; 71046; 80053; 81001; 83735; 85025; 86140; 96374; 99283; J1885; J3490; J7030

== ENCOUNTER 2022-08-01 09:31 | Emergency (ER) | payer MEDICAID ==
[2022-08-01] MEDS ORDERED: HYDROmorphone 1 MG/ML Syringe IM ONE (10:43)
== END 2022-08-01 11:53 | disposition home or self-care (01) ==
LOC: JD.ED 09:31
DX: S49.91XA Unspecified injury of right shoulder and upper arm, initial encounter (principal); Z72.0 Tobacco use; Z88.0 Allergy status to penicillin; X50.0XXA Overexertion from strenuous movement or load, initial encounter
CPT/HCPCS: 73030; 96372; 99283; J1170

== ENCOUNTER 2023-07-15 10:53 | Emergency (ER) | payer MEDICAID ==
[2023-07-15] MEDS ORDERED: Ketorolac 60 MG/2 ML SDV IM ONE (11:40)
== END 2023-07-15 13:12 | disposition home or self-care (01) ==
LOC: JD.ED 10:53
DX: S63.642A Sprain of metacarpophalangeal joint of left thumb, initial encounter (principal); F17.210 Nicotine dependence, cigarettes, uncomplicated; Z88.0 Allergy status to penicillin; Z86.16 Personal history of COVID-19; X50.9XXA Other and unspecified overexertion or strenuous movements or postures, initial encounter
CPT/HCPCS: 29125; 73130; 96372; 99283; J1885

== ENCOUNTER 2025-03-20 15:30 | Emergency (ER) | payer SELFPAY ==
[2025-03-20 16:02] LABS: BASOPHILS ABSOLUTE AUTO 0.1 K/mm3 (0.0-0.2); BASOPHILS PERCENT AUTO 0.7 % (0.0-1.0); EOSINOPHILS ABSOLUTE AUTO 0.1 K/mm3 (0.0-0.4); EOSINOPHILS PERCENT AUTO 0.9 % (0.0-6.0); IMMATURE GRAN ABSOLUTE AUTO 0.02 K/mm3 (0.00-0.05); IMMATURE GRAN PERCENT AUTO 0.2 % (0.0-0.4); LYMPHOCYTES ABSOLUTE AUTO 3.0 K/mm3 (1.0-4.8); LYMPHOCYTES PERCENT AUTO 33.8 % (24.0-44.0); MEAN PLATELET VOLUME 10.0 fl (9.4-12.3); MONOCYTES ABSOLUTE AUTO 0.5 K/mm3 (0.0-0.8); MONOCYTES PERCENT AUTO 5.8 % (0.0-8.0); NEUTROPHILS ABSOLUTE AUTO 5.1 K/mm3 (1.8-7.7); NEUTROPHILS PERCENT AUTO 58.6 % (41.0-71.0); NRBC ABSOLUTE 0.00 (0.00-0.02); NRBC PERCENT 0.0 % (0.0-0.2); PLATELET COUNT,PLT 215 K/mm3 (150-400); RED BLOOD CELL COUNT 4.61 M/mm3 (4.10-5.30); WHITE BLOOD CELL COUNT,WBC 8.76 K/mm3 (3.9-11.3)
[2025-03-20 16:23] LABS: A/G RATIO 1.0 (1-2); ALANINE AMINOTRANSFERASE,ALT 18.0 U/L (14-59); ASPARTATE AMNIOTRANSFERASE,AST 19.0 U/L (15-37); BILIRUBIN TOTAL 0.3 mg/dL (0.2-1.0); BLOOD UREA NITROGEN,BUN 9.0 mg/dL (7-18); CARBON DIOXIDE,CO2 30.0 mEq/L (21-32); CHLORIDE,CL 102.0 mEq/L (98-107); CREATININE 0.8 mg/dL (0.55-1.02); EST CRCL DRUG DOSING (CG) 65.8 mL/min; ESTIMATED GFR 89.0 mL/min (>60); GLUCOSE RANDOM 86.0 mg/dL (70-99); POTASSIUM,K 3.7 mEq/L (3.5-5.1); PROTEIN TOTAL,TP 7.2 g/dl (6.4-8.2); SODIUM,NA 140.0 mEq/L (136-145); TROPONIN I HIGH SENSITIVITY 4.0 pg/mL (<=51)
[2025-03-20] MEDS ORDERED: Naloxone 0.4 MG/ML SDV IVPUSH PRN (16:43)
== END 2025-03-20 17:29 | disposition home or self-care (01) ==
LOC: JD.ED 15:30
DX: R07.89 Other chest pain (principal); F17.200 Nicotine dependence, unspecified, uncomplicated; Z79.899 Other long term (current) drug therapy; Z88.0 Allergy status to penicillin; Z86.16 Personal history of COVID-19
CPT/HCPCS: 36415; 71045; 80053; 84484; 85025; 93005; 96372; 99285; A9270; 93010; 99284; J1171